=== PATIENT | male | born 1930 | race Caucasian/White ===

== ENCOUNTER 2016-09-07 09:30 | Day surgery (SDC) | payer MEDICARE ==
[~2016-09-07 09:30] MED LIST: FENTANYL 250 MCG/5 ML AMP ONE; LACTATED RINGERS 1,000 ML IV SCH; PROPOFOL 20 ML IV ONE
[2016-09-07] MEDS ORDERED: LACTATED RINGERS 1,000 ML ONE (09:34)
[2016-09-07] MEDS ORDERED: IV START KIT ONE (09:34)
== END 2016-09-07 11:33 | disposition home or self-care (01) ==
LOC: SDC 09:30
PROVIDERS: ATTEND Internal Medicine Gastroenterology
PROC: 0DJD8ZZ Inspection of Lower Intestinal Tract, Via Natural or Artificial Opening Endoscopic (ICD-10-PCS; principal; 2016-09-07)
DX: Z12.11 Encounter for screening for malignant neoplasm of colon (principal); Z85.038 Personal history of other malignant neoplasm of large intestine; Z86.010 Personal history of colon polyps; I10 Essential (primary) hypertension; E03.9 Hypothyroidism, unspecified
CPT/HCPCS: J3010; J7120; G0105